=== PATIENT | female | born 1960 | race Caucasian/White ===

== ENCOUNTER 2017-11-03 19:13 | Emergency (ER) | payer MEDICARE, MEDICAID ==
[~2017-11-03] VITALS: Ht 165.1 cm; Wt 112.9 kg
[2017-11-03 19:13] VITALS: BP_SYST 138
[~2017-11-03 19:13] MED LIST: BENA10TA2 PO
[2017-11-03] MEDS ORDERED: fentaNYL CITRATE/PF 100 MCG/2 ML AMP IM ONE (22:00)
== END 2017-11-03 23:45 | disposition home or self-care (01) ==
LOC: SED 19:13
DX: M54.41 Lumbago with sciatica, right side (principal); I10 Essential (primary) hypertension; Z98.890 Other specified postprocedural states; Z79.899 Other long term (current) drug therapy
CPT/HCPCS: 72100; 96372; 99284; J3010

== ENCOUNTER 2019-12-10 23:22 | Inpatient (IN) | payer MEDICARE, MEDICAID ==
[~2019-12-10] VITALS: Ht 165.1 cm; Wt 108.9 kg
[2019-12-10 23:22] VITALS: BP_SYST 142
[~2019-12-10 23:22] MED LIST changes: +BENA10TA11 PO; -BENA10TA2 PO
--- NOTE | 2019-12-10 23:22 | NUR ---
Pt brought in by construction sales representative. Pt awake, alert, oriented x4. Pt states that she has had re-occuring bilateral lower quadrant abdominal pain 07/22. Pt states she was recently diagnosed with gallstones and asymptomatic urinary tract infection. Pt states that she has had persistent nausea with pain. Pt denies chest pain, diarrhea, shortness of breath at this time. Pt resting in ed bed, with moderate distress. x1 episode of vomiting. VSS
--- NOTE | 2019-12-10 23:22 | NUR ---
Patient to ER bed 4 to gown for evaluation. Side rails up.
--- NOTE | 2019-12-10 23:30 | NUR ---
ER at bedside examining patient.
[2019-12-10] MEDS ORDERED: LOSA25TA3 PO (23:46)
[2019-12-10] MEDS ORDERED: HYDR12.55 PO (23:47)
[2019-12-10] MEDS ORDERED: AMLO2.5T2 PO (23:48)
[2019-12-11] MEDS ORDERED: MORPHINE 4 MG/ML INJ. SYRINGE IVP ONE
[2019-12-11] MEDS ORDERED: ONDANSETRON HCL 4 MG/2 ML VIAL IVP ONE
[2019-12-11] MEDS ORDERED: NACL 0.9% 1,000 ML IV ONE
[2019-12-11 00:13] LABS: BILIRUBIN,URINE NEGATIVE (NEGATIVE); CLARITY/URINE CLEAR (CLEAR); COLOR,URINE YELLOW (YELLOW); GLUCOSE,URINE NEGATIVE (NEGATIVE); KETONES,URINE TRACE (NEGATIVE); LEUKOCYTE ESTERASE ,URINE TRACE (NEGATIVE); NITRITE, URINE NEGATIVE (NEGATIVE); PROTEIN URINE NEGATIVE (NEGATIVE); UROBILINOGEN,URINE 0.2 (0.2-1.0)
[2019-12-11 00:23] LABS: BLOOD, URINE TRACE (NEGATIVE)
[2019-12-11 00:28] LABS: BACTERIA,URINE FEW /HPF (None Seen)
[2019-12-11 00:29] LABS: BASOPHILS # (AUTO) 0.1 K/uL (0.0-0.2); BASOPHILS % (AUTO) 0.8 % (0.0-2.0); EOSINOPHILS # (AUTO) 0.4 K/uL (0.0-0.4); EOSINOPHILS % (AUTO) 3.6 % (0.0-4.0); HEMATOCRIT 41.3 % (36-48); HEMOGLOBIN 13.9 g/dL (12.0-16.0); LYMPHOCYTES # (AUTO) 2.9 K/uL (1.0-5.5); LYMPHOCYTES % (AUTO) 25.7 % (20.5-51.5); MEAN CORPUSCULAR HEMOGLOBIN 28 pg (27-31); MEAN CORPUSCULAR HGB CONC 34 % (32-36); MEAN CORPUSCULAR VOLUME 84 fL (79.0-98.0); MONOCYTES # (AUTO) 0.7 K/uL (0.0-1.0); NEUTROPHILS # (AUTO) 7.3 K/uL (1.8-7.7); NEUTROPHILS % (AUTO) 63.9 % (40.0-70.0); PLATELET COUNT (AUTO) 260 K/uL (130-430); RED CELL DISTRIBUTION WIDTH 13.8 % (9.0-15.0); WHITE BLOOD COUNT (AUTO) 11.4 K/uL (4.8-10.8)
--- NOTE | 2019-12-11 00:30 | NUR ---
Pt Resting in ED bed. No additional vomiting.
[2019-12-11 00:35] LABS: CALCIUM 8.9 mg/dL (8.4-11.0); CREATININE 0.84 mg/dL (0.55-1.30); POTASSIUM 3.5 mmol/L (3.5-5.1)
[2019-12-11 00:41] LABS: ALBUMIN 3.7 g/dL (3.4-4.8); TOTAL BILIRUBIN 0.4 mg/dL (0.0-1.0)
--- NOTE | 2019-12-11 01:15 | NUR ---
Pt resting in ED bed. Given blanket at request
[2019-12-11] MEDS ORDERED: MORPHINE 2 MG/ML INJ. SYRINGE IVP ONE (01:30)
[2019-12-11] MEDS ORDERED: cefTRIAXone 1 GM in D5W 50 ML IV ONE (01:30)
[2019-12-11] MEDS ORDERED: cefTRIAXone 1 GM VIAL ONE (01:57)
--- NOTE | 2019-12-11 02:01 | NUR ---
Pt states pain still unresolved. No additional Vomiting.
--- NOTE | 2019-12-11 02:45 | NUR ---
Pt given Ice Chips
--- NOTE | 2019-12-11 03:00 | NUR ---
Pt assisted to use restroom
--- NOTE | 2019-12-11 03:45 | NUR ---
Pt resting in Bed. Pt states that she would like more pain medications.
--- NOTE | 2019-12-11 04:00 | NUR ---
Patient will be admitted to care of . Admitted to Med/Surg unit. Will go to room 109C. Belongings list completed. Complete and up to date summary report printed. SBAR report to be given at bedside with opportunity for questions.
--- NOTE | 2019-12-11 04:47 | NUR ---
[facility] IV present no sign or symptom of infiltration.
[2019-12-11] MEDS ORDERED: MORPHINE 4 MG/ML INJ. SYRINGE IVP PRN ×2 (05:00→11:32)
[2019-12-11] MEDS ORDERED: MORPHINE 2 MG/ML INJ. SYRINGE IVP PRN (05:00)
[2019-12-11] MEDS ORDERED: ONDANSETRON HCL 4 MG/2 ML VIAL IVP PRN (05:00)
--- NOTE | 2019-12-11 05:10 | NUR ---
ADMIT NOTE Received pt from ER to the floor with a diagnosis of gallstone. Admission process initiated. patient oriented to pain management, safety and call light-teach back done.
[2019-12-11 05:22] VITALS: BP_SYST 122
--- NOTE | 2019-12-11 05:54 | NUR ---
CONSULTATION PAGED/CALLED Reason for Consultation: GALLSTONES Person Who was Notified: LONNIE Consulting Physician: PANCHO ALVAREZ IS [employer] House Attendant Specialty: Ordering Physician: ANSELMO
--- NOTE | 2019-12-11 06:13 | NUR ---
initial notes: pt is awake, alert,oriented x 4. no pain, no sob. not distress, complain of right upper quadrant abdominal pain. stable vital sign. no skin breakdown. right ac gauge 20 iv lock. ambulatory to bathroom with steady gait. explained to pt plan of care, orient to room, call light, bathroom. pt verbalized understanding. needs attended, call light with the pt. safety precaution in place. sister at bedside. will monitor.
[2019-12-11] MEDS: D5/0.45 NS 1,000 ML IV SCH (06:18)
--- NOTE | 2019-12-11 07:20 | NUR ---
closing: pt is awake, alert. no pain, no sob, not distress, stable, ivf infusing well. needs attended, call light in reach, side rails up. low bed position and lock. bedside report given to am rn.
--- NOTE | 2019-12-11 09:00 | NUR ---
GI DR ALVAREZ VISIT PATIENT SEEN BY DR ALVAREZ WANTS TO NOTIFY PCP FOR SURGICAL CONSULT , AWAITING FOR DR SALAS TO CALL BACK , MAINTAINED NPO AT THIS TIME, EXPLAINED TO THE PATIENT
--- NOTE | 2019-12-11 09:00 | NUR ---
RN INITIAL NOTES RECEIVED PATIENT IN BED NO DISTRESS , IVF ORDERED ,MAINTAINED NPO , RESP EVEN AND UNLABORED , AWAITING FOR THE GI CONSULT VISIT
--- NOTE | 2019-12-11 10:28 | NUR ---
CONSULTATION PAGED/CALLED Reason for Consultation: [] GALLSTONES Person Who was Notified: [] NEERAJ Consulting Physician: [] DR Jemima GARCIA Power Station Operator Specialty: [] GEN SURGEON Ordering Physician: [] DR Jemima SALAS
--- NOTE | 2019-12-11 10:35 | NUR ---
DR GARCIA SPOKE WITH SURGEON DR GARCIA REPORT GIVEN AND DISCUSSED PATIENT CONDITION AND MD SAID HE WILL COME LATER
[2019-12-11] MEDS ORDERED: ROCURONIUM BROMIDE 10 MG/ML (ZEMURON) IV ONE (11:55)
[2019-12-11] MEDS ORDERED: LR 1,000 ML IV.SOLN IV ONE (11:55)
[2019-12-11] MEDS ORDERED: fentaNYL CITRATE/PF 100 MCG/2 ML AMP IVP ONE (11:55)
[2019-12-11] MEDS ORDERED: PROPOFOL 200MG/ 20ML VIAL (DIPRIVAN) IV ONE (11:55)
[2019-12-11] MEDS ORDERED: MIDAZOLAM HCL 5 MG/5 ML VIAL IVP ONE (11:55)
[2019-12-11] MEDS ORDERED: IOHEXOL 300mgI/mL,100 ML INFUS..BTL IV ONE (11:55)
[2019-12-11] MEDS ORDERED: CEFAZOLIN 2 GM IVPB PREMIX 50 ML IV ONE (11:55)
[2019-12-11] MEDS ORDERED: NS IRRIG SOLN 1000 ML IR ONE (11:55)
[2019-12-11] MEDS ORDERED: BUPIVACAINE /EPINEPHRINE/PF 0.25% 30 ML VIAL INJ ONE (11:55)
[2019-12-11] MEDS ORDERED: SEVOFLURANE 15 MIN GAS INH ONE (11:55)
[2019-12-11 12:15] VITALS: BP_SYST 124
--- NOTE | 2019-12-11 12:30 | NUR ---
DR GARCIA VISIT PATIENT SEEN AND EXAMINED BY DR GARCIA , DISCUSSED PLAN OF SURGERY TOMORROW AND PATIENT WAS EXPLAINED AND AGREED ALL QUESTIONS ANSWERED BY MD , WILL SECURE CONSENT , PATIENT CLEAR LIQUID AT THIS TIME AND NPO DAVON LINK MD WILL CALL ME LATER FOR SURGERY TIME TOMORROW , CHARGE NURSE MADE AWARE
[2019-12-11] MEDS ORDERED: LORazepam 2 MG/ML VIAL IVP PRN (12:45)
--- NOTE | 2019-12-11 14:00 | NUR ---
ROUNDS PATIENT SLEEPING AT THIS TIME , NEEDS ATTENDED
[2019-12-11 16:18] VITALS: BP_SYST 125
--- NOTE | 2019-12-11 17:57 | NUR ---
CONSENT PATIENT CONSENTED WITH THE PROPOSED SURGERY IN AM , CONSENTED WITH ANESTHESIA IN AM AT 2PM , DR BINGHAM EXPLAINED ANESTHESIA , PER DR BINGHAM MAY GIVE BP MEDS WITH VERY SMALL OF WATER IN THE MORNING
--- NOTE | 2019-12-11 19:18 | NUR ---
ENDORSEMENT WILL CONT CARE , PATIENT WILL HAVE CLEAR LIQUID THEN NPO PMN , CONT WITH IVF ORDERED AND SURGERY PLAN IN AM IS LAPAROSCOPIC CHOLECYSTECTOMY AND CHOLANGIOGRAM POSSIBLE OPEN IN AM AT 2 PM CONSENTED AND AWRE O FTHE PALN
--- NOTE | 2019-12-11 19:25 | NUR ---
OPENING NOTES Patient is resting, no signs of distress, no pain at this time. IVF running, dressings c/d/i. Call light within reach, bed alarm refused after patient education of bed alarm provided and patient verbalizes understanding. Patient able to demonstrate use of call light. Patient verbalizes that she has signed the consent and spoken to Dr. Hurd in regards to procedure for tomorrow. Oriented patient to use of call light and plans of care, NPO after midnight. Will continue to monitor.
[2019-12-11 20:00] VITALS: BP_SYST 120
--- NOTE | 2019-12-11 21:40 | NUR ---
Paged Dr. Hurd, [facility]
--- NOTE | 2019-12-11 21:50 | NUR ---
SPOKE TO DR. GARCIA, [facility]
[2019-12-11] MEDS: MORPHINE 4 MG/ML INJ. SYRINGE IVP PRN (22:15)
[2019-12-11] MEDS: ONDANSETRON HCL 4 MG/2 ML VIAL IVP PRN (22:16)
[2019-12-12] VITALS (7 sets, daily range): BP systolic 111–141
--- NOTE | 2019-12-12 00:14 | NUR ---
Patient is resting, no signs of distress observed. Will continue to monitor.
[2019-12-12] MEDS: D5/0.45 NS 1,000 ML IV SCH ×4 (02:41→20:08)
[2019-12-12] MEDS: MORPHINE 4 MG/ML INJ. SYRINGE IVP PRN ×4 (04:52→20:14)
[2019-12-12] MEDS: ONDANSETRON HCL 4 MG/2 ML VIAL IVP PRN (04:52)
--- NOTE | 2019-12-12 05:00 | NUR ---
Patient is provided pain medication for headache. Will reassess and continue to monitor.
[2019-12-12 06:46] LABS: ALBUMIN 2.9 g/dL (3.4-4.8); CALCIUM 8.2 mg/dL (8.4-11.0); CREATININE 0.65 mg/dL (0.55-1.30); POTASSIUM 3.5 mmol/L (3.5-5.1); TOTAL BILIRUBIN 0.3 mg/dL (0.0-1.0)
[2019-12-12 06:53] LABS: BASOPHILS # (AUTO) 0.1 K/uL (0.0-0.2); BASOPHILS % (AUTO) 1.2 % (0.0-2.0); EOSINOPHILS # (AUTO) 0.5 K/uL (0.0-0.4); EOSINOPHILS % (AUTO) 7.9 % (0.0-4.0); HEMATOCRIT 37.2 % (36-48); HEMOGLOBIN 12.5 g/dL (12.0-16.0); LYMPHOCYTES # (AUTO) 2.5 K/uL (1.0-5.5); LYMPHOCYTES % (AUTO) 42.1 % (20.5-51.5); MEAN CORPUSCULAR HEMOGLOBIN 29 pg (27-31); MEAN CORPUSCULAR HGB CONC 34 % (32-36); MEAN CORPUSCULAR VOLUME 86 fL (79.0-98.0); MONOCYTES # (AUTO) 0.5 K/uL (0.0-1.0); MONOCYTES % (AUTO) 8.4 % (1.7-9.3); NEUTROPHILS # (AUTO) 2.4 K/uL (1.8-7.7); NEUTROPHILS % (AUTO) 40.4 % (40.0-70.0); PLATELET COUNT (AUTO) 207 K/uL (130-430); RED BLOOD CELL COUNT(AUTO) 4.35 MIL/uL (4.2-6.2); RED CELL DISTRIBUTION WIDTH 14.1 % (9.0-15.0); WHITE BLOOD COUNT (AUTO) 5.9 K/uL (4.8-10.8)
--- NOTE | 2019-12-12 07:20 | NUR ---
CLOSING NOTES Patient is resting, no signs of acute respiratory distress observed. IVF running, dressings c/d/i. No pain at this time, pain medications PRN provided throughout shift, all needs met throughout shift. Patient refused bed alarm throughout shift, able to use call light, call light within reach, bed at lowest position. Will endorse care to oncoming shift.
[2019-12-12] MEDS: LOSARTAN POTASSIUM 25 MG TABLET PO SCH (08:16)
[2019-12-12] MEDS: amLODIPine BESYLATE 5 MG TABLET PO SCH (08:16)
[2019-12-12] MEDS: HYDROCHLOROTHIAZIDE 12.5 MG CAPSULE (HCTZ) PO SCH (08:16)
--- NOTE | 2019-12-12 08:17 | NUR ---
RN INITIAL NOTES RECEIVED PATIENT IN BED NOT IN ANY DISTRESS, PATIENT IS AWARE OF THE PLAN OF CARE , PATIENT VS TAKEN AND BP ON 111/54 , PATIENT STATED NO NEED TO TAKE MY BP MEDS BEC ITS GONNA GO MORE LOWER, I WAS GIVEN MORPHINE THIS AM, MAINTAINED NPO
--- NOTE | 2019-12-12 10:00 | NUR ---
ROUNDS PATIENT MADE AWARE SHE WILL HAVE SURGERY MOVED TO 12 NOON INSTEAD OF 2PM , NO PAIN
--- NOTE | 2019-12-12 12:00 | NUR ---
OFF TO SURGERY PATIENT TAKEN TO SURGERY ALERT AND NO DISTRESS
[2019-12-12] MEDS ORDERED: ONDANSETRON HCL 4 MG/2 ML VIAL IVP PRN (12:30)
[2019-12-12] MEDS ORDERED: fentaNYL CITRATE/PF 100 MCG/2 ML AMP IVP PRN ×2 (12:30)
[2019-12-12] MEDS ORDERED: IOHEXOL 50 ML IV ONE (13:03)
--- NOTE | 2019-12-12 15:28 | NUR ---
RETURN FROM SURGERY PATIENT RETURN FROM SURGERY , AWAKE BUT DROWSY , REPORT GIVEN BY OR NURSE, PATIENT ABLE TO ANSWER QUESTIONS AND ENDORSED BY OR NURSE PATIENT HAD URINATED POST OP, PATIENT WITH IVF INFUSING , PATIENT WITH ULICES DRAIN TO RT SIDE AND DRESSING TO POST OP INCISION IS INTACT , SCD IS ON , PATIENT FAMILY WANTS TO SPEAK WITH DR GARCIA FOR UPDATE
--- NOTE | 2019-12-12 16:10 | NUR ---
DR GARCIA RETURNED CALL RETURNED CALL AND INFORMED HIM FAMILY WANTS TO SPEAK WITH HIM , ALSO PATIENT OK TO HAVE CLEAR LIQUID , MD SPOKE WITH THE SON AND ANSWERS THE QUESTIONS ,PATIENT APPLIED WITH SCD
--- NOTE | 2019-12-12 17:01 | NUR ---
POST MORPHINE PATIENT STATED MORPHINE HELPED AND SHE WILL SLEEP FOR NOW, FAMILY AT BEDSIDE
--- NOTE | 2019-12-12 19:15 | NUR ---
change of shift.pt.presents quiescent affect;calm,resting family visiting.pt.is s/p surgery;..pt.presents incisions x3 sites.pt.presents j-maxwell. location;rlq/abdomen.pt.presents iv access intact patent iv fluids infusing.diet:clear liquids.general status stable.respiratory status stable;unlabored.call light/telephone w/in reach of the pt.
--- NOTE | 2019-12-12 20:00 | NUR ---
pt.assessed.v/s assessed.values w/in normal limits.pt.requested medication;pain.pt.presents option:morphine:2mg/morphine;4mg ivp.pt.requested morphine:4mg ivp.i have administered the morphine;4mg ivp.to re-assess the medication efficacy pain mgx protocol. i have attended to the j-maxwell:measured/emptied.pt.presents iv acces intact patent iv fluids infusing.i have apprised the pt.that i may provide snacks/beverages w/in the shift w/in clear liquids parameters.no request posited @this hour.general status stable.respiratory status stable.unlabored;o2-sat%=94%.call light/telephone placed w/in reach of the pt.
--- NOTE | 2019-12-12 21:00 | NUR ---
2100pmedications administered.pt.requested assistance to th restroom i have assisted the pt.to the restroom;gait assessed. gait steady. pt.assisted return to the bed.pt.repositioned.no additional requests posited @this hour.
--- NOTE | 2019-12-12 22:00 | NUR ---
pt.assessed.pt.presents quiescent affect;calm,somnolent.general status stable.respiratory status stable.unlabored.iv acces intact patent iv fluids infusing.j-maxwell intact patent blood return present.pt.capable to reposition self.call light/telephone w/in reach of the pt.
[2019-12-13] VITALS: BP_SYST 135
--- NOTE | 2019-12-13 | NUR ---
pt.assessed.v/s assessed values w/in normal limits.pt.presents quiescent affect;calm,somnolent.iv access intact patent iv fluid infusing. j-amxwell intact patent blood return present.general status stable.respiratory status stable;unlabored.pt.capable to reposition self. call light/telephone w/in reach of the pt.pt.capable to reposition self.
[2019-12-13] MEDS: MORPHINE 4 MG/ML INJ. SYRINGE IVP PRN ×5 (01:51→19:58)
--- NOTE | 2019-12-13 02:00 | NUR ---
pt.assessed.pt had requested assistance to the restroom.gait assessed;gait wnl.pt.assisted return to bed.pt repositioned. i have attended to the j-maxwell;measured/emptied.pt.had requested medication;pain;pt.requested morphine 2mg.i have administered morphine 2mg ivp per the pt's requests.to re-assess the efficacy of the pain medication per pain mgx protocol.pt.requestrs water.i have provided fresh water. call light/ telephone placed w/in reach of the pt.
--- NOTE | 2019-12-13 04:00 | NUR ---
pt.assessed.pt.presents quiescent affect;calm,somnolent.iv access intact patent iv fluids infusing.j-maxwell intact patent blood return present. general status stable.respiratory status stable;unlabored@room air.pt.capable to reposition self.call light/telephone w/in reach of the pt.
--- NOTE | 2019-12-13 04:45 | NUR ---
pt.requested assistance to the restroom i have assisted the pt.i have assisted the pt's return to bed.repositioned. no additional requests posited. @this hour.call light/telephone placed w/in reach of the pt.
[2019-12-13] MEDS: D5/0.45 NS 1,000 ML IV SCH ×3 (06:23→19:59)
--- NOTE | 2019-12-13 06:30 | NUR ---
pt.assessed.pt.requested assistance to the restroom.i have assisted the pt.i have assisted the pt's return to bed;pt.repositioned.i have attended to the j-maxwell;measured/cleaned.pt.had c/o pain.pt requested morphine:4mg .i have administered morphine;4mg ivp to re-assess the pain medication efficacy per the pain mgx protocol.
[2019-12-13 07:18] LABS: BASOPHILS # (AUTO) 0.1 K/uL (0.0-0.2); BASOPHILS % (AUTO) 0.7 % (0.0-2.0); EOSINOPHILS # (AUTO) 0.1 K/uL (0.0-0.4); EOSINOPHILS % (AUTO) 1.4 % (0.0-4.0); HEMATOCRIT 36.2 % (36-48); HEMOGLOBIN 12.4 g/dL (12.0-16.0); LYMPHOCYTES # (AUTO) 1.9 K/uL (1.0-5.5); LYMPHOCYTES % (AUTO) 23.7 % (20.5-51.5); MEAN CORPUSCULAR HEMOGLOBIN 29 pg (27-31); MEAN CORPUSCULAR HGB CONC 34 % (32-36); MEAN CORPUSCULAR VOLUME 84 fL (79.0-98.0); MONOCYTES # (AUTO) 0.8 K/uL (0.0-1.0); MONOCYTES % (AUTO) 9.4 % (1.7-9.3); NEUTROPHILS # (AUTO) 5.3 K/uL (1.8-7.7); NEUTROPHILS % (AUTO) 64.8 % (40.0-70.0); PLATELET COUNT (AUTO) 239 K/uL (130-430); RED CELL DISTRIBUTION WIDTH 13.9 % (9.0-15.0); WHITE BLOOD COUNT (AUTO) 8.2 K/uL (4.8-10.8)
[2019-12-13 07:41] LABS: ALBUMIN 2.8 g/dL (3.4-4.8); CALCIUM 7.8 mg/dL (8.4-11.0); CREATININE 0.63 mg/dL (0.55-1.30); TOTAL BILIRUBIN 0.4 mg/dL (0.0-1.0)
[2019-12-13 08:00] VITALS: BP_SYST 143
--- NOTE | 2019-12-13 08:00 | NUR ---
Note Pt sitting up in bed eating her clear liquids breakfast. IV in right AC intact and patent at this time. No SOB/resp distress or pain/discomfort noted at this time. Abdominal dressings on abdomen CDI at this time. ULICES drain on right side of abdomen intact and draining. Call light within reach. No needs noted at this time.
[2019-12-13] MEDS: LOSARTAN POTASSIUM 25 MG TABLET PO SCH (09:19)
[2019-12-13] MEDS: HYDROCHLOROTHIAZIDE 12.5 MG CAPSULE (HCTZ) PO SCH (09:20)
[2019-12-13] MEDS: amLODIPine BESYLATE 5 MG TABLET PO SCH (09:20)
[2019-12-13] MEDS ORDERED: HYDROcodone/ACETAMIN 5-325 MG TAB (NORCO/ VICODIN) PO PRN (09:30)
[2019-12-13] MEDS ORDERED: ACETAMINOPHEN 325 MG TABLET PO PRN (09:30)
[2019-12-13] MEDS ORDERED: OXYCODONE/ACETAMINOPHEN 5-325 TABLET PO PRN (09:30)
[2019-12-13] MEDS ORDERED: POTASSIUM CHLORIDE 40 MEQ in NS 250 ML IV ONE (11:00)
--- NOTE | 2019-12-13 12:00 | NUR ---
Note Pt has been ambulating to restroom number of times with steady gait and IV pole. Pt has been sitting in BS chair for some time as well. Pt has been encouraged to use IS q1' 10X while awake. Pain tolerable at this time. Call light within reach. No needs noted at this time.
[2019-12-13 12:35] VITALS: BP_SYST 143
--- NOTE | 2019-12-13 16:00 | NUR ---
Note Pt resting in bed after ambulating in room and to restroom. Pt also states she has been using the IS q1' 10X and is up to 1000 at this time. Call light within reach. No needs noted at this time.
[2019-12-13 16:40] VITALS: BP_SYST 131
--- NOTE | 2019-12-13 18:40 | NUR ---
Note Pt sitting up in bed with 2 visitors at bedside at this time. Pt denies any SOB/resp distress or any severe abdominal pain/discomfort at this time. Pt was checked on q1' and PRN all shift for needs and care. IV in right AC intact and patent infusing IVF's well. Pt has been able to pass flatus - no bowel movement at this time. Pt denies any needs at this time. Abdominal dressing dry and intact with right side ULICES drain. Call light within reach. Pt ambulated in room and to the restroom throughout shift.
--- NOTE | 2019-12-13 19:25 | NUR ---
CHANGE OF SHIFT; pt. awake, alert when received with visitor at bedside. noted to start having pain post op, will assess first before giving pain medication. call light within reach.
[2019-12-13 20:00] VITALS: BP_SYST 140
--- NOTE | 2019-12-13 20:00 | NUR ---
NOTES: VS checked. IV via rt. antecubital infusing @ 100 cc/hr. medicated with Morphine 4 mg IV for 7/10 pain scale. encouraged use of incentive spirometer and deep breathing. checked abdomen with small dressing and J maxwell on rt. side with scant serous drainage. pt. ambulates to the restroom. reminded pt. to use call light if help needed and verbalized understanding.
--- NOTE | 2019-12-13 22:00 | NUR ---
NOTES: pt. asleep when checked, noted relief from pain.
--- NOTE | 2019-12-14 01:00 | NUR ---
NOTES: made rounds, checked and remain sleeping with lights off and door closed per pt. request.
[2019-12-14] MEDS: D5/0.45 NS 1,000 ML IV SCH ×2 (01:52→22:56)
[2019-12-14] MEDS: MORPHINE 4 MG/ML INJ. SYRINGE IVP PRN (01:53)
[2019-12-14 01:59] VITALS: BP_SYST 153
--- NOTE | 2019-12-14 02:00 | NUR ---
NOTES: pt. awakened, IV pump alarming, positional, flushed ,kind of sluggish, no other vein visible. medicated with IV Morphine for c/o post op abdominal pain. VS rechecked.
--- NOTE | 2019-12-14 03:36 | NUR ---
NOTES: condition observed. pt. sleeping.
--- NOTE | 2019-12-14 05:35 | NUR ---
NOTES: condition unchanged, continue to monitor. pt. still asleep.
--- NOTE | 2019-12-14 06:54 | NUR ---
CLOSING NOTES; pt. awakened, went to the restroom and went back to sleep. IV remains positional, flushed again. needs attended. Caroline maxwell drained @ 5 cc output. for further care and assist. call stacy coats.
[2019-12-14 07:04] LABS: ALBUMIN 3.1 g/dL (3.4-4.8); CALCIUM 8.6 mg/dL (8.4-11.0); CREATININE 0.54 mg/dL (0.55-1.30); POTASSIUM 3.1 mmol/L (3.5-5.1); TOTAL BILIRUBIN 0.9 mg/dL (0.0-1.0)
[2019-12-14 08:00] VITALS: BP_SYST 145
--- NOTE | 2019-12-14 08:00 | NUR ---
initial notes rec patient awake alert ambulating to the br. ivf infusiiing well on the r ac. no infiltration noted. denies pain. bed to the lowest position and side rails up and locked. call light within reached. no sob noted.
[2019-12-14 09:09] LABS: BASOPHILS # (AUTO) 0.1 K/uL (0.0-0.2); EOSINOPHILS # (AUTO) 0.4 K/uL (0.0-0.4); EOSINOPHILS % (AUTO) 5.4 % (0.0-4.0); HEMATOCRIT 40.5 % (36-48); HEMOGLOBIN 13.7 g/dL (12.0-16.0); LYMPHOCYTES # (AUTO) 2.4 K/uL (1.0-5.5); LYMPHOCYTES % (AUTO) 28.9 % (20.5-51.5); MEAN CORPUSCULAR HEMOGLOBIN 29 pg (27-31); MEAN CORPUSCULAR HGB CONC 34 % (32-36); MEAN CORPUSCULAR VOLUME 85 fL (79.0-98.0); MONOCYTES # (AUTO) 0.6 K/uL (0.0-1.0); MONOCYTES % (AUTO) 6.7 % (1.7-9.3); NEUTROPHILS # (AUTO) 4.8 K/uL (1.8-7.7); PLATELET COUNT (AUTO) 243 K/uL (130-430); RED BLOOD CELL COUNT(AUTO) 4.78 MIL/uL (4.2-6.2); RED CELL DISTRIBUTION WIDTH 13.6 % (9.0-15.0); WHITE BLOOD COUNT (AUTO) 8.3 K/uL (4.8-10.8)
[2019-12-14] MEDS: amLODIPine BESYLATE 5 MG TABLET PO SCH (10:00)
[2019-12-14] MEDS: LOSARTAN POTASSIUM 25 MG TABLET PO SCH (10:01)
[2019-12-14] MEDS: HYDROCHLOROTHIAZIDE 12.5 MG CAPSULE (HCTZ) PO SCH (10:02)
--- NOTE | 2019-12-14 19:15 | NUR ---
OPENING NOTES RECEIVED PATIENT IN BED AAO X4. BREATHING UNLABORED ON ROOM AIR. DENIES PAIN THIS TIME. BED IN LOWEST LOCKED POSITION. CALL LIGHT WITH IN REACH.
--- NOTE | 2019-12-14 20:00 | NUR ---
SHOWER PATIENT TOOK A SHOWER. ABDOMINAL INCISIONS AND IV LINE COVERED WITH OP SITE. COMPLETE BED LINENS CHANGED.
[2019-12-14 22:45] VITALS: BP_SYST 125
[2019-12-14] MEDS: traZODone HCL 50 MG TABLET (DESYREL) PO PRN (22:46)
--- NOTE | 2019-12-14 22:46 | NUR ---
SLEEP PATIENT MEDICATED WITH TRAZADONE PER PATIENT REQUEST FOR SLEEP.
--- NOTE | 2019-12-15 00:30 | NUR ---
ROUNDS PATIENT RESTING IN BED. NO DISTRESS NOTED.
--- NOTE | 2019-12-15 04:14 | NUR ---
ROUNDS PATIENT RESTING IN BED. SNORING ON AND OFF. NO DISTRESS NOTED.
--- NOTE | 2019-12-15 07:03 | NUR ---
CLOSING NOTES PATIENT NEEDS ATTENDED. ULICES OUTPUT ONLY 10 ML. NO C/O PAIN THROUGH OUT THE NIGHT. NO DISTRESS NOTED.
[2019-12-15 07:16] LABS: BASOPHILS # (AUTO) 0.1 K/uL (0.0-0.2); BASOPHILS % (AUTO) 0.9 % (0.0-2.0); EOSINOPHILS # (AUTO) 0.8 K/uL (0.0-0.4); EOSINOPHILS % (AUTO) 10.4 % (0.0-4.0); HEMATOCRIT 37.3 % (36-48); HEMOGLOBIN 12.7 g/dL (12.0-16.0); LYMPHOCYTES # (AUTO) 1.9 K/uL (1.0-5.5); LYMPHOCYTES % (AUTO) 25.3 % (20.5-51.5); MEAN CORPUSCULAR HEMOGLOBIN 29 pg (27-31); MEAN CORPUSCULAR HGB CONC 34 % (32-36); MEAN CORPUSCULAR VOLUME 85 fL (79.0-98.0); MONOCYTES # (AUTO) 0.6 K/uL (0.0-1.0); MONOCYTES % (AUTO) 7.6 % (1.7-9.3); NEUTROPHILS # (AUTO) 4.3 K/uL (1.8-7.7); NEUTROPHILS % (AUTO) 55.8 % (40.0-70.0); PLATELET COUNT (AUTO) 224 K/uL (130-430); RED BLOOD CELL COUNT(AUTO) 4.41 MIL/uL (4.2-6.2); RED CELL DISTRIBUTION WIDTH 13.9 % (9.0-15.0); WHITE BLOOD COUNT (AUTO) 7.7 K/uL (4.8-10.8)
[2019-12-15 07:36] LABS: ALBUMIN 2.8 g/dL (3.4-4.8); CALCIUM 8.6 mg/dL (8.4-11.0); CREATININE 0.59 mg/dL (0.55-1.30); TOTAL BILIRUBIN 0.6 mg/dL (0.0-1.0)
--- NOTE | 2019-12-15 08:00 | NUR ---
initial notes rec patient awake alert with ivl on the l ac intact. no infiltration noted. denies pain. bed to the lowest position and side rails up and locked. call light within reached. dressing onthe abdomen in place. no bleeding noted.
[2019-12-15] MEDS: amLODIPine BESYLATE 5 MG TABLET PO SCH (09:12)
[2019-12-15] MEDS: HYDROCHLOROTHIAZIDE 12.5 MG CAPSULE (HCTZ) PO SCH (09:12)
[2019-12-15] MEDS: LOSARTAN POTASSIUM 25 MG TABLET PO SCH (09:13)
--- NOTE | 2019-12-15 10:00 | NUR ---
rounds due meds given as annie. ambulates to the br and annie well.
[2019-12-15 11:20] VITALS: BP_SYST 146
--- NOTE | 2019-12-15 12:00 | NUR ---
rounds sitting at the edge of the bed and eating lunch. no sob noted. denies pain at this time.call light within reached.
--- NOTE | 2019-12-15 14:56 | NUR ---
DC Barriers: Pending MRCP: Per GI's note: "Possibilities include retained CBD stone, ischemic liver injury during surgery, post op infection or abscess, or undiagnosed chronic liver disease. Will get MRCP and order chronic liver disease laboratories"
[2019-12-15 15:06] VITALS: BP_SYST 112
--- NOTE | 2019-12-15 16:00 | NUR ---
rounds adviced re npo post midnight for the mrcp in am. no sob noted. call light withn reached.
--- NOTE | 2019-12-15 18:30 | NUR ---
closing notes dr jany flowers was made aware of the k result. stated willtake care of it. sitting at bedside with her family. denies pain.
[2019-12-15 18:31] VITALS: BP_SYST 112
--- NOTE | 2019-12-15 19:30 | NUR ---
Opening notes Received report. Patient is resting in bed. No signs of distress noted. Breathing even and unlabored. No complaints of pain. IV patent and intact, no signs of infiltration noted. Surgical dressing noted x4. Dressing clean dry and intact, x3. Lower right dressing has old dried blood. ULICES drain noted with small amount of red drainage. No needs at this time. Call light with the patient. Safety precautions in place.
[2019-12-15 20:00] VITALS: BP_SYST 117
--- NOTE | 2019-12-15 21:00 | NUR ---
New IV inserted IV infiltrated. Catheter tip intact and discarded. New IV inserted into left forearm 22 gauge. Flushes well. Patient requesting sleep medicine. Will administer. No other needs. Call light with the patient. Safety precautions in place.
[2019-12-15] MEDS: traZODone HCL 50 MG TABLET (DESYREL) PO PRN (21:59)
--- NOTE | 2019-12-15 22:00 | NUR ---
Trazadone PRN insomnia medication given. Educated the action and side effects of medication. Patient verbalized understanding and tolerated well. No other needs. call light with the patient. Safety precautions in place.
--- NOTE | 2019-12-16 | NUR ---
NPO Patient will be NPO for MRCP procedure in AM. Patient verbalized understanding. No other needs. Call light with the patient. Safety precautions in place.
[2019-12-16 01:15] VITALS: BP_SYST 130
--- NOTE | 2019-12-16 02:00 | NUR ---
Sleeping no signs of distress noted. Breathing even and unlabored. call light with the patient. Safety precautions in place.
--- NOTE | 2019-12-16 04:30 | NUR ---
Sleeping Patient sleeping. No signs of distress noted. Breathing even and unlabored. IV patent and intact, no signs of infiltration noted. No needs. Call light with the patient. Safety precautions in place.
--- NOTE | 2019-12-16 06:50 | NUR ---
Closing notes Patient is resting comfortably in bed. No signs of distress noted. Breathing even and unlabored. No complaints of pain. IV patent and intact, no signs of infiltration noted. Patient NPO since midnight. Drained 10 ml of red drainage from ULICES drain. All needs met throughout the shift. call light with the patient. Safetty precautions in place. Will endorse care to day shift RN.
[2019-12-16 07:21] LABS: BASOPHILS # (AUTO) 0.1 K/uL (0.0-0.2); BASOPHILS % (AUTO) 1.2 % (0.0-2.0); EOSINOPHILS # (AUTO) 0.9 K/uL (0.0-0.4); EOSINOPHILS % (AUTO) 12.1 % (0.0-4.0); HEMATOCRIT 35.5 % (36-48); HEMOGLOBIN 12.3 g/dL (12.0-16.0); LYMPHOCYTES # (AUTO) 2.1 K/uL (1.0-5.5); LYMPHOCYTES % (AUTO) 27.7 % (20.5-51.5); MEAN CORPUSCULAR HEMOGLOBIN 29 pg (27-31); MEAN CORPUSCULAR HGB CONC 35 % (32-36); MEAN CORPUSCULAR VOLUME 84 fL (79.0-98.0); MONOCYTES # (AUTO) 0.6 K/uL (0.0-1.0); PLATELET COUNT (AUTO) 226 K/uL (130-430); RED BLOOD CELL COUNT(AUTO) 4.21 MIL/uL (4.2-6.2); WHITE BLOOD COUNT (AUTO) 7.8 K/uL (4.8-10.8)
[2019-12-16 07:27] LABS: ALBUMIN 2.7 g/dL (3.4-4.8); CALCIUM 8.8 mg/dL (8.4-11.0); CREATININE 0.62 mg/dL (0.55-1.30); POTASSIUM 3.2 mmol/L (3.5-5.1); TOTAL BILIRUBIN 0.5 mg/dL (0.0-1.0)
--- NOTE | 2019-12-16 08:00 | NUR ---
initial notes rec patient awake alert with ivl on the l forearm intact. no infiltration noted. npo maintained for mrcp today. denies pain. yobani intact and draining to scanty amount of reddish drainage. resp easy and unlabored. no sob noted. call light within reached.
[2019-12-16 08:44] VITALS: BP_SYST 135
--- NOTE | 2019-12-16 10:00 | NUR ---
rounds seen by dr reyes and with orders. ambulates at intervals in the room and annie well. was picked up for mrcp via wheelchair and annie well. no sob noted.
--- NOTE | 2019-12-16 11:15 | NUR ---
DC PLANNING Received call from Arina @ [facility], ph [phone], updated on pt status.
--- NOTE | 2019-12-16 12:20 | NUR ---
rounds yobani was pulled out at bedside and denies pain. covered yobani site with 4x4 dressing . observed for any bleeding.
[2019-12-16 12:36] VITALS: BP_SYST 126
[2019-12-16] MEDS: HYDROCHLOROTHIAZIDE 12.5 MG CAPSULE (HCTZ) PO SCH (12:55)
[2019-12-16] MEDS: LOSARTAN POTASSIUM 25 MG TABLET PO SCH (12:56)
[2019-12-16] MEDS: amLODIPine BESYLATE 5 MG TABLET PO SCH (12:56)
--- NOTE | 2019-12-16 13:32 | NUR ---
GI MD DR ANAND WAS CALLED RE: MRCP RESULTS. SPOKE TO OSMANI
--- NOTE | 2019-12-16 13:33 | NUR ---
GEN SURGEON Jemima SEBASTIAN WAS CALLED RE: MRCP RESULTS. SPOKE TO DL.
--- NOTE | 2019-12-16 14:00 | NUR ---
rounds dr reyes and dr mackenzie was called for the mrcp result. dr mackenzie called and awaiting for dr reyes to call back.
--- NOTE | 2019-12-16 14:28 | NUR ---
Dietitian Recommendations * Recommend continuing mechanical soft diet [address] Please refer to Nutrition Assessment for details. Addendum: 12/16/19 at [address] Amended: Links added.
[2019-12-16] MEDS ORDERED: HYDR-4272 PO (18:15)
[2019-12-16 18:39] VITALS: BP_SYST 126
[2019-12-16] MEDS ORDERED: POTASSIUM CHLORIDE 20 MEQ TAB.PRT.SR PO ONE (18:45)
--- NOTE | 2019-12-16 19:05 | NUR ---
closing notes pt was discharged after seen by dr flowers. instructed re appt with dr flowers and dr reyes. kdur was given prior to d/c. id band and iv locked was removed. escorted outside via wheelchair and stable. needs attended. prescription given to the patient anddiscussed with patient.
[2019-12-17 11:06] LABS: HEPATITIS A AB, IgM Negative (Negative); HEPATITIS B CORE AB, IgM Negative (Negative); HEPATITIS B SURFACE AG Negative (Negative)
[2019-12-17 12:36] LABS: FERRITIN 255 ng/mL (15-150)
[2019-12-17 15:08] LABS: ANTI NUCLEAR AB WITH REFLEX Negative (Negative)
== END 2019-12-16 19:05 | disposition home or self-care (01) | DRG 417 ==
LOC: SED 23:22 → SMU 12-11 04:47
PROVIDERS: ADMIT Preventive Medicine Preventive Medicine/Occupational Environmental Medicine; ATTEND Preventive Medicine Preventive Medicine/Occupational Environmental Medicine
PROC: BF121ZZ Fluoroscopy of Gallbladder using Low Osmolar Contrast (ICD-10-PCS; 2019-12-12)
PROC: 0DNU4ZZ Release Omentum, Percutaneous Endoscopic Approach (ICD-10-PCS; 2019-12-12)
PROC: 0FN44ZZ Release Gallbladder, Percutaneous Endoscopic Approach (ICD-10-PCS; 2019-12-12)
PROC: 0FT44ZZ Resection of Gallbladder, Percutaneous Endoscopic Approach (ICD-10-PCS; principal; 2019-12-12 11:55)
DX: K80.12 Calculus of gallbladder with acute and chronic cholecystitis without obstruction (principal); E43 Unspecified severe protein-calorie malnutrition; E87.1 Hypo-osmolality and hyponatremia; E88.09 Other disorders of plasma-protein metabolism, not elsewhere classified; E87.6 Hypokalemia; I10 Essential (primary) hypertension; E66.01 Morbid (severe) obesity due to excess calories; R74.0 Nonspecific elevation of levels of transaminase and lactic acid dehydrogenase [LDH]; G47.00 Insomnia, unspecified; K66.0 Peritoneal adhesions (postprocedural) (postinfection); M19.90 Unspecified osteoarthritis, unspecified site; Z96.651 Presence of right artificial knee joint; D72.829 Elevated white blood cell count, unspecified; R73.9 Hyperglycemia, unspecified; Z68.39 Body mass index [BMI] 39.0-39.9, adult; Z87.891 Personal history of nicotine dependence; Z79.899 Other long term (current) drug therapy; Z87.828 Personal history of other (healed) physical injury and trauma
CPT/HCPCS: 36415; 71045; 74181; 74300; 80053; 80074; 81000-TC; 82150-TC; 82728; 83516; 83690-TC; 85025; 85610-TC; 86038; 87040-TC; 87081; 88304; 93005; 94010; 96361; 96365; 96375; 96376; 99285; C1727; J0690; J0696; J2250; J2270; J2405; J2704; J3010; J3480; J3490; J7030; J7050; J7120; Q9967